=== PATIENT | female | born 1975 | race Two or more races ===

== ENCOUNTER 2021-08-23 21:12 | Emergency (ER) | payer MEDICAID, SELFPAY ==
[~2021-08-23] VITALS: Ht 167.6 cm; Wt 73.0 kg
[2021-08-24] MEDS ORDERED: HYDROCODONE/ACETAMINOPHEN 5/325MG TABLET PO ONE
[2021-08-24] MEDS ORDERED: IBUP-2029 MT (00:54)
[2021-08-24 01:13] VITALS: BP 129/87
== END 2021-08-24 01:20 | disposition home or self-care (01) ==
LOC: ER 21:12
DX: S16.1XXA Strain of muscle, fascia and tendon at neck level, initial encounter (principal); S50.02XA Contusion of left elbow, initial encounter; S50.01XA Contusion of right elbow, initial encounter; V49.49XA Driver injured in collision with other motor vehicles in traffic accident, initial encounter; Y93.89 Activity, other specified; Y92.89 Other specified places as the place of occurrence of the external cause; Y99.8 Other external cause status
CPT/HCPCS: 71045; 72040; 72100; 73070; 99284